=== PATIENT | female | born 1990 ===

== ENCOUNTER 2016-12-19 06:24 | Inpatient (IN) | payer OTHER, BC ==
[2016-12-19 06:31] VITALS: BMI 28.1
[2016-12-19] MEDS ORDERED: Lactated Ringer's 1,000 ML IV ONE ×2 (07:00→09:15)
[2016-12-19] MEDS ORDERED: Midazolam 2 MG/2 ML VIAL ONE (07:02)
[2016-12-19] MEDS ORDERED: Succinylcholine 200 mg/10 ml Inj IV ONE (07:02)
[2016-12-19] MEDS ORDERED: ePHEDrine 50 mg/ml Inj ONE (07:02)
[2016-12-19] MEDS ORDERED: Phenylephrine 10 mg/ml Inj ONE (07:02)
[2016-12-19] MEDS ORDERED: Propofol 10 mg/ml Inj (20 ML) ONE (07:02)
[2016-12-19] MEDS ORDERED: Rocuronium 10 mg/ml (5 ml) ONE (07:02)
[2016-12-19] MEDS ORDERED: Thrombin Topical 5,000 IU Spray Kit ONE (07:07)
[2016-12-19] MEDS ORDERED: Bupivacaine HCl 0.25% PF (30 ml) Inj ONE (07:07)
[2016-12-19] MEDS ORDERED: Absorbable Gelatin Sponge Size 100 ONE (07:07)
[2016-12-19] MEDS ORDERED: Lidocaine 2% w Epi 1:100,000 Inj IJ ONE (07:07)
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
[2016-12-19] MEDS ORDERED: Lidocaine 2% w Epi 1:200,000 Pf Inj IJ ONE (07:57)
[2016-12-19] MEDS ORDERED: HEMOSTATIC MATRIX 10 ML DIS.NEEDLE TOP ONE ×2 (08:10)
[2016-12-19] MEDS ORDERED: Dexamethasone 4 mg/1 ml ONE (08:24)
[2016-12-19] MEDS ORDERED: Neostigmine Methylsulfate 2 MG/2 ML ML IV ONE (09:00)
[2016-12-19] MEDS ORDERED: Desflurane Inhalation Anesthetic Liq (240 ml) ONE (09:03)
[2016-12-19] MEDS ORDERED: Bupivacaine HCl 0.25% PF (30 ml) Inj IJ ONE ×2 (09:21→09:40)
[2016-12-19] MEDS: HYDROmorphone 0.5 mg/0.5 ml ISec IVP PRN ×3 (10:30→10:55)
[2016-12-19] MEDS: Sodium Chloride 0.9% 1,000 ML IV SCH (13:30)
[2016-12-19] MEDS: Oxycodone/Acetaminophen 5/325 mg Tab PO PRN (14:52)
--- NOTE | 2016-12-19 16:00 | RAD ---
PROCEDURE: Intraoperative fluoroscopy HISTORY: PLIF COMPARISON: None available TECHNIQUE: Intraoperative fluoroscopy was provided for epidural injection. Total time of fluoroscopy was 56.7 seconds. FINDINGS: A single fluoroscopic spot image is submitted. This is on file for review. IMPRESSION: Fluoroscopy provided.
[2016-12-19] MEDS: Dexamethasone 4 MG in Sodium Chloride 0.9% 50 ML IVPB SCH ×2 (16:20→21:22)
[2016-12-19] MEDS: ceFAZolin 1 GM in Sodium Chloride 0.9% 100 ML IVPB SCH (16:21)
--- NOTE | 2016-12-19 19:43 | OP ---
DATE OF PROCEDURE: 12/19/2016 PREOPERATIVE DIAGNOSIS: Lumbar herniated disk at L3-L4 and L4-L5. POSTOPERATIVE DIAGNOSIS: Lumbar herniated disk at L3-L4 and L4-L5. PROCEDURES PERFORMED: Left L3-L4 and L-4-L5 hemilaminotomy, medial facetectomy, decompression, L3 through L5 pedicle screw fixation and instrumentation using an Amendia system, L3 through L5 posterolateral fusion. SURGEON: Dr. Yan. COSMETOLOGY TEACHER: Areli Gutierrez, who is a physician electrician station assistant. She stayed throughout the case from the beginning to the end, helped me perform the surgery. Fluoroscopy had been used for the procedure. Microscopy had been used for the procedure. DESCRIPTION OF PROCEDURE: The patient was brought to the operating room, anesthetized with general endotracheal anesthesia, placed in a prone position on the Felipe table. Care was taken to protect all the pressure points. Back of the lumbar area was thoroughly prepped and draped in same sterile manner after marking of the skin incision for lumbar laminectomy and fusion. After prepping and draping, the skin had been incised. Bleeding skins had been controlled with bipolar counter attendant. After using a Bovie counter attendant, paraspinal muscles had been detached from attachments of spinous process and lamina of L3, L4, L5 bilaterally. Deep retractors had been applied. Identification of levels had been done with the help of fluoroscopy. Initially, a K-wire, later a drill had been used in order to enter the pedicles of L3, L4, and L5. Polyaxial titanium screws of Amendia system had been placed. Titanium rods had been placed. All the screws and cap nuts had been used in order to secure them. All this had been done with the help of fluoroscopy. Under microscopic examination on the left side, the lamina of L3-L4, medial part of the facets of L3-L4 had been drilled. Drilling was continued until the top and bottom of the ligamentum flavum was seen. Drilling was also continued on the middle part of the facets until the turn of ligamentum flavum had been seen. Once this had been done, thinned out the lamina, medial part of the facets and ligamentum flavum had been removed. Similarly at L4-L5, hemilaminotomy, medial facetectomy, thinning of bone, and removal of thinned bone and ligamentum flavum had been done. Disk space had been examined. Herniated disk noted; however, no extrusion noted. Hence, no diskectomy was preformed. At this point, lateral aspect of the facet joint and transverse process had been decorticated. Demineralized bone was placed in the area achieving a posterolateral fusion. Hemostasis was best achieved. Felipe drain was placed in the wound and brought out through a separate stab neck skin incision. Muscles and fascia were closed with 1 Vicryl, subcutaneous with 3-0 Vicryl, and skin had been closed with intradermal 3 Vicryl stitches. The patient tolerated procedure and after procedure, mobilized to the recovery room in stabilized condition. Ho Yan MD
[2016-12-20] MEDS: ceFAZolin 1 GM in Sodium Chloride 0.9% 100 ML IVPB SCH ×3 (00:18→16:39)
[2016-12-20] MEDS: Sodium Chloride 0.9% 1,000 ML IV SCH (00:19)
[2016-12-20] MEDS: Oxycodone/Acetaminophen 5/325 mg Tab PO PRN (00:21)
[2016-12-20] MEDS: Dexamethasone 4 MG in Sodium Chloride 0.9% 50 ML IVPB SCH ×4 (04:40→21:01)
[2016-12-20 06:34] LABS: BLOOD UREA NITROGEN 10 mg/dl (7-17); CALCIUM 9.3 mg/dL (8.4-10.2); CARBON DIOXIDE 23 mmol/L (22-30); CHLORIDE 105 mmol/L (98-107); GFR AFRICAN-AMERICAN > 60; GLUCOSE,RANDOM 125 mg/dL (65-105); HEMATOCRIT 37.9 % (34.0-47.0); LYMPH # 0.9 K/uL (1.0-4.3); LYMPH % 5.6 % (20.0-40.0); MEAN CELL VOLUME 89.9 fl (81.0-99.0); MEAN CORPUSCULAR HEMOGLOBIN 29.1 pg (27.0-31.0); MEAN CORPUSCULAR HGB CONC 32.4 g/dL (33.0-37.0); MEAN PLATELET VOLUME 9.9 fl (7.2-11.7); MONO # 0.9 K/uL (0.0-0.8); MONO % 5.7 % (0.0-10.0); NEUT # 14.5 K/uL (1.8-7.0); NEUT % 88.7 % (50.0-75.0); PLATELET COUNT 179 K/uL (130-400); POTASSIUM 4.2 MMOL/L (3.6-5.0); RED CELL DISTRIBUTION WIDTH 13.5 % (11.5-14.5); SODIUM 141 mmol/l (132-148); WHITE BLOOD COUNT 16.3 K/uL (4.8-10.8)
[2016-12-20 08:20] LABS: NEUTROPHIL 84 % (42-75); TOTAL CELLS COUNTED 100
--- NOTE | 2016-12-20 10:47 | CP.PCM.PN ---
Subjective - Date & Time of Evaluation Date of Evaluation: 12/20/16 Time of Evaluation: 10:44 - Subjective Subjective: pt seen and examined at bedside this morning. S/P L3-L5 Decompression/Fusion Laminectomy POD#1. Pt had an uneventful overnight. Afebrile. Pain tolerated with meds. OOB/Ambulating w/o pain/dizziness/gait disturbance. +flatus/-BM. Drain emptied by PA. No other complaints. Objective - Vital Signs/Intake and Output Vital Signs (last 24 hours): Temp Pulse Resp BP Pulse Ox 98 F 72 18 115/76 96 12/20/16 08:33 12/20/16 08:33 12/20/16 08:33 12/20/16 08:33 12/20/16 08:33 Intake and Output: 12/20/16 12/20/16 06:59 18:59 Output Total 130 Balance -130 - Medications Medications: Current Medications Cyclobenzaprine HCl (Flexeril) 10 mg PO TID PRN PRN Reason: Muscle spasm Cefazolin Sodium 1 gm/ Sodium (Chloride) 100 mls @ 100 mls/hr IVPB Q8 [facility] Last Admin: 12/20/16 09:18 Dose: 100 mls/hr Dexamethasone 4 mg/ Sodium (Chloride) 51 mls @ 102 mls/hr IVPB Q6 [facility] Last Admin: 12/20/16 09:17 Dose: 102 mls/hr Sodium Chloride (Sodium Chloride 0.9%) 1,000 mls @ 75 mls/hr IV .[id number] [facility] Stop: 12/20/16 11:00 Last Admin: 12/20/16 00:19 Dose: 75 mls/hr Morphine Sulfate (Morphine) 4 mg IVP Q4 PRN PRN Reason: Pain, severe (8-10) Oxycodone/Acetaminophen (Percocet 5/325 Mg Tab) 2 tab PO Q4 PRN PRN Reason: Pain, moderate (4-7) Stop: 12/22/16 10:44 Last Admin: 12/20/16 00:21 Dose: 2 tab - Labs Labs: 12/20/16 05:55 12/20/16 05:55 - Constitutional Appears: Non-toxic, No Acute Distress - Eye Exam Eye Exam: EOMI Pupil Exam: PERRL - ENT Exam ENT Exam: Mucous Membranes Moist - Respiratory Exam Respiratory Exam: Clear to Ausculation Bilateral, NORMAL BREATHING PATTERN. absent: Rales, Rhonchi, Wheezes - Cardiovascular Exam Cardiovascular Exam: REGULAR RHYTHM, RRR, +S1, +S2. absent: JVD, Rubs - GI/Abdominal Exam GI & Abdominal Exam: Soft, Normal Bowel Sounds. absent: Tenderness - Extremities Exam Extremities Exam: Full ROM, Normal Capillary Refill, Normal Inspection. absent : Pedal Edema, Tenderness - Neurological Exam Neurological Exam: Alert, Awake, CN II-XII Intact, Normal Gait, Oriented x3 - Psychiatric Exam Psychiatric exam: Normal Affect, Normal Mood Assessment and Plan (1) S/P laminectomy Assessment & Plan: pain management as ordered physical therapy colace of constipation Neuro/vital checks Dexamethasone 4mg Q6 [facility] prn Status: Acute
--- NOTE | 2016-12-20 13:06 | CP.PCM.PN ---
Subjective - Date & Time of Evaluation Date of Evaluation: 12/20/16 Time of Evaluation: 13:04 - Subjective Subjective: Patient states pain in her back is well controlled. She says she has no tingling down her leg since the surgery. She has good appetite, denies headache/ cp/sob/dizziness/n/v/numbness/tingling. Was up to bathroom x 3 today. Objective - Vital Signs/Intake and Output Vital Signs (last 24 hours): Temp Pulse Resp BP Pulse Ox 98.2 F 84 18 111/73 94 L 12/20/16 12:26 12/20/16 12:26 12/20/16 12:26 12/20/16 12:26 12/20/16 12:26 Intake and Output: 12/20/16 12/20/16 06:59 18:59 Output Total 130 Balance -130 - Medications Medications: Current Medications Cyclobenzaprine HCl (Flexeril) 10 mg PO TID PRN PRN Reason: Muscle spasm Cefazolin Sodium 1 gm/ Sodium (Chloride) 100 mls @ 100 mls/hr IVPB Q8 [facility] Last Admin: 12/20/16 09:18 Dose: 100 mls/hr Dexamethasone 4 mg/ Sodium (Chloride) 51 mls @ 102 mls/hr IVPB Q6 [facility] Last Admin: 12/20/16 09:17 Dose: 102 mls/hr Morphine Sulfate (Morphine) 4 mg IVP Q4 PRN PRN Reason: Pain, severe (8-10) Oxycodone/Acetaminophen (Percocet 5/325 Mg Tab) 2 tab PO Q4 PRN PRN Reason: Pain, moderate (4-7) Stop: 12/22/16 10:44 Last Admin: 12/20/16 00:21 Dose: 2 tab - Labs Labs: 12/20/16 05:55 12/20/16 05:55 - Constitutional Appears: Well, No Acute Distress - Extremities Exam Additional comments: +DP pulses calves soft NT neg homans - Back Exam Back Exam: NORMAL INSPECTION, tenderness - Neurological Exam Neurological Exam: Alert, Awake, CN II-XII Intact (sensation intact BLE), Oriented x3 Neuro motor strength exam: Left Lower Extremity: 5 (knee flex/ext, ankle DF/PF, great toe ext), Right Lower Extremity: 5 - Psychiatric Exam Psychiatric exam: Normal Affect, Normal Mood - Skin Skin Exam: Dry, Intact, Normal Color, Warm Assessment and Plan (1) Lumbar disc herniation with radiculopathy Assessment & Plan: POD#1 s/p left L3/4 L4/5 hemilaminectomy, medial facetectomy, decompression, L3 through L5 posterior lateral fusion -monitor drain output -continue pain medication, steroid taper, OOB/PT -d/w Dr. Yan, agrees with above Status: Acute
[2016-12-21] MEDS: Oxycodone/Acetaminophen 5/325 mg Tab PO PRN (01:22)
[2016-12-21] MEDS: ceFAZolin 1 GM in Sodium Chloride 0.9% 100 ML IVPB SCH ×3 (01:24→17:52)
[2016-12-21] MEDS: Dexamethasone 4 MG in Sodium Chloride 0.9% 50 ML IVPB SCH ×4 (04:40→22:04)
[2016-12-21 05:27] LABS: MEAN CELL VOLUME 89.2 fl (81.0-99.0); MEAN CORPUSCULAR HEMOGLOBIN 28.9 pg (27.0-31.0); MEAN CORPUSCULAR HGB CONC 32.4 g/dL (33.0-37.0); RED CELL DISTRIBUTION WIDTH 13.5 % (11.5-14.5); WHITE BLOOD COUNT 16.6 K/uL (4.8-10.8)
[2016-12-21 05:41] LABS: BLOOD UREA NITROGEN 12 mg/dl (7-17); CARBON DIOXIDE 25 mmol/L (22-30); CHLORIDE 104 mmol/L (98-107); GFR AFRICAN-AMERICAN > 60; GLUCOSE,RANDOM 121 mg/dL (65-105); SODIUM 143 mmol/l (132-148)
--- NOTE | 2016-12-21 12:05 | CP.PCM.PN ---
Subjective - Date & Time of Evaluation Date of Evaluation: 12/21/16 Time of Evaluation: 12:03 - Subjective Subjective: pt seen and examined at bedside this morning with attending and SHIFT PRODUCTION SUPERVISOR. Uneventful overnight, afebrile, feels better wants to go home. Drain replaced this AM, however site is still consistently draining sero-sanguinous fluid. Pt has no new complaints. Denies pain, numbness/tingling. Objective - Vital Signs/Intake and Output Vital Signs (last 24 hours): Temp Pulse Resp BP Pulse Ox 97.8 F 67 18 114/70 95 12/21/16 08:00 12/21/16 08:00 12/21/16 08:00 12/21/16 08:00 12/21/16 08:00 Intake and Output: 12/21/16 12/21/16 06:59 18:59 Intake Total 600 Output Total 50 Balance 550 - Medications Medications: Current Medications Cyclobenzaprine HCl (Flexeril) 10 mg PO TID PRN PRN Reason: Muscle spasm Cefazolin Sodium 1 gm/ Sodium (Chloride) 100 mls @ 100 mls/hr IVPB Q8 [facility] Last Admin: 12/21/16 08:20 Dose: 100 mls/hr Dexamethasone 4 mg/ Sodium (Chloride) 51 mls @ 102 mls/hr IVPB Q6 [facility] Last Admin: 12/21/16 09:24 Dose: 102 mls/hr Morphine Sulfate (Morphine) 4 mg IVP Q4 PRN PRN Reason: Pain, severe (8-10) Oxycodone/Acetaminophen (Percocet 5/325 Mg Tab) 2 tab PO Q4 PRN PRN Reason: Pain, moderate (4-7) Stop: 12/22/16 10:44 Last Admin: 12/21/16 01:22 Dose: 2 tab - Labs Labs: 12/21/16 04:15 12/21/16 04:15 - Constitutional Appears: Non-toxic, No Acute Distress - Eye Exam Eye Exam: EOMI Pupil Exam: PERRL - ENT Exam ENT Exam: Mucous Membranes Moist - Respiratory Exam Respiratory Exam: Clear to Ausculation Bilateral, NORMAL BREATHING PATTERN. absent: Rales, Rhonchi, Wheezes - Cardiovascular Exam Cardiovascular Exam: REGULAR RHYTHM, RRR, +S1, +S2. absent: JVD, Rubs - GI/Abdominal Exam GI & Abdominal Exam: Soft, Normal Bowel Sounds. absent: Tenderness - Extremities Exam Extremities Exam: Normal Inspection. absent: Calf Tenderness - Neurological Exam Neurological Exam: Alert, Awake, CN II-XII Intact, Oriented x3 Assessment and Plan (1) S/P laminectomy Assessment & Plan: will f/u with NS on possible drain removal and potential DC today monitor drain output/vitals Status: Acute
[2016-12-22] MEDS: Oxycodone/Acetaminophen 5/325 mg Tab PO PRN (00:04)
[2016-12-22] MEDS: ceFAZolin 1 GM in Sodium Chloride 0.9% 100 ML IVPB SCH ×2 (00:06→09:00)
[2016-12-22] MEDS: Dexamethasone 4 MG in Sodium Chloride 0.9% 50 ML IVPB SCH ×2 (04:39→09:00)
[2016-12-22 05:29] VITALS: RESP 20
[2016-12-22 07:11] LABS: HEMATOCRIT 38.2 % (34.0-47.0); MEAN CORPUSCULAR HEMOGLOBIN 29.3 pg (27.0-31.0); MEAN CORPUSCULAR HGB CONC 32.9 g/dL (33.0-37.0); RED CELL DISTRIBUTION WIDTH 13.6 % (11.5-14.5); WHITE BLOOD COUNT 14.1 K/uL (4.8-10.8)
[2016-12-22 07:32] LABS: BLOOD UREA NITROGEN 16 mg/dl (7-17); CARBON DIOXIDE 29 mmol/L (22-30); CHLORIDE 102 mmol/L (98-107); GFR AFRICAN-AMERICAN > 60; GLUCOSE,RANDOM 110 mg/dL (65-105); POTASSIUM 4.3 MMOL/L (3.6-5.0); SODIUM 142 mmol/l (132-148)
[2016-12-22 16:10] VITALS: BP 116/74; PULSE 82; TEMP 98.3; O2SAT 95
--- NOTE | 2016-12-22 20:23 | CP.PCM.DIS ---
Provider - Provider Date of Admission: 12/19/16 10:25 Attending physician: Jarret Thomas MD Hospital Course - Lab Results Lab Results: Most Recent Lab Values WBC 14.1 K/uL (4.8-10.8) H 12/22/16 06:00 RBC 4.29 Mil/uL (3.80-5.20) 12/22/16 06:00 Hgb 12.6 g/dL (12.0-16.0) 12/22/16 06:00 Hct 38.2 % (34.0-47.0) 12/22/16 06:00 MCV 89.0 fl (81.0-99.0) 12/22/16 06:00 MCH 29.3 pg (27.0-31.0) 12/22/16 06:00 MCHC 32.9 g/dL (33.0-37.0) L 12/22/16 06:00 RDW 13.6 % (11.5-14.5) 12/22/16 06:00 Plt Count 202 K/uL (130-400) 12/22/16 06:00 MPV 9.9 fl (7.2-11.7) 12/20/16 05:55 Neut % (Auto) 88.7 % (50.0-75.0) H 12/20/16 05:55 Lymph % (Auto) 5.6 % (20.0-40.0) L 12/20/16 05:55 [place] % (Auto) 5.7 % (0.0-10.0) 12/20/16 05:55 Eos % (Auto) 0.0 % (0.0-4.0) 12/20/16 05:55 Baso % (Auto) 0.0 % (0.0-2.0) 12/20/16 05:55 Neut # 14.5 K/uL (1.8-7.0) H 12/20/16 05:55 Lymph # 0.9 K/uL (1.0-4.3) L 12/20/16 05:55 [place] # 0.9 K/uL (0.0-0.8) H 12/20/16 05:55 Eos # 0.0 K/uL (0.0-0.7) 12/20/16 05:55 Baso # 0.0 K/uL (0.0-0.2) 12/20/16 05:55 Neutrophils % (Manual) 84 % (42-75) H 12/20/16 05:55 Band Neutrophils % 3 % (0-2) H 12/20/16 05:55 Lymphocytes % (Manual) 9 % (20-50) L 12/20/16 05:55 Monocytes % (Manual) 4 % (0-10) 12/20/16 05:55 Platelet Estimate Normal (NORMAL) 12/20/16 05:55 RBC Morphology Normal (NORMAL) 12/20/16 05:55 Sodium 142 mmol/l (132-148) 12/22/16 06:00 Potassium 4.3 MMOL/L (3.6-5.0) 12/22/16 06:00 Chloride 102 mmol/L (98-107) 12/22/16 06:00 Carbon Dioxide 29 mmol/L (22-30) 12/22/16 06:00 Anion Gap 15 (10-20) 12/22/16 06:00 BUN 16 mg/dl (7-17) 12/22/16 06:00 Creatinine 0.7 mg/dL (0.7-1.2) 12/22/16 06:00 Est GFR ( Amer) > 60 12/22/16 06:00 Est GFR (Non-Af Amer) > 60 12/22/16 06:00 Random Glucose 110 mg/dL (65-105) H 12/22/16 06:00 Calcium 9.0 mg/dL (8.4-10.2) 12/22/16 06:00 Beta HCG, Quant < 2.39 mIU/mL 12/22/16 08:00 Blood Type B POSITIVE 12/19/16 07:15 Blood Type Confirm B POSITIVE 12/19/16 07:45 Antibody Screen Negative 12/19/16 07:15 BBK History Checked No verified bt 12/19/16 07:15 - Hospital Course Hospital Course: This is a 26 y/o female admitted for laminectomy o the LS spine. Discharge Exam - Head Exam Head Exam: ATRAUMATIC, NORMAL INSPECTION, NORMOCEPHALIC Discharge Plan - Discharge Medications Prescriptions: Cefuroxime Axetil [Ceftin] 500 mg PO BID 7 Days #14 ml oxyCODONE/Acetaminophen 1/2TAB [Percocet 5-325 mg HALF TAB] 5 ea PO QID #20 tab - Follow Up Plan Condition: GOOD Disposition: HOME/ ROUTINE Instructions: Laminectomy (DC), Laminectomy (GEN) Additional Instructions: NO BENDING,NO HEAVY LIFTING,NO DRIVING TILL SEEN FOR FOLLOW UP WITH . KEEP WOUND CLEAN AND DRY.
== END 2016-12-22 17:50 | disposition home or self-care (01) | DRG 460 ==
LOC: H.OPSURG 06:24 → H.TEL 10:25
PROVIDERS: ADMIT Family Medicine; ATTEND Family Medicine
PROC: 0SG10A1 (ICD-10-PCS; principal; 2016-12-19 07:45)
DX: M51.16 Intervertebral disc disorders with radiculopathy, lumbar region (principal); M47.26 Other spondylosis with radiculopathy, lumbar region